=== PATIENT | female | born 2000 | race African-American/Black ===

== ENCOUNTER 2023-07-30 04:03 | Emergency (ER) | payer OTHER ==
--- NOTE | 2023-07-30 04:09 | ED Physician Documentation ---
PD HPI DYSPNEA - Stated complaint Stated Complaint: SOA/COVID+ - History obtained from History obtained from: Patient - Additional information Additional information: HPI from patient. Patient complains of generalized myalgias and malaise, bilateral ear pain, sore throat, sinus congestion, generalized headache, dyspnea, nausea and vomiting, chills and sweats. Has not taken temperature at home (does not have a thermometer). The symptoms began 2 days ago. Last night she took a COVID test at home, with COVID-positive result. She says she has taken DayQuil with inadequate relief of her symptoms; she says that the chief reason for luke's ED visit is to see if there are other medications that will better control her symptoms. PD PAST MEDICAL HISTORY - Past Medical History Past Medical History: No - Allergies Allergies/Adverse Reactions: Allergies Allergy/AdvReac Type Severity Reaction Status Date / Time No Known Drug Allergies Allergy Verified 07/30/23 04:10 PD ED PE NORMAL - Vitals Vital signs reviewed: Yes - General General: Alert and oriented X 3, No acute distress, Well developed/nourished - HEENT HEENT: Ears normal, Moist mucous membranes - Respiratory Respiratory: No respiratory distress, Clear bilaterally PD ED PE EXPANDED - HEENT HEENT: Pharyngeal erythema (mild erythema ) Results - Vitals Vitals: Vital Signs - 24 hr 07/30/23 07/30/23 04:07 04:56 Temperature 36.8 C 36 C L Heart Rate 94 74 Respiratory 18 16 Rate Blood Pressure 143/79 H 131/67 H O2 Saturation 98 98 Oxygen O2 Source Room air PD Medical Decision Making - ED course Complexity details: considered differential, d/w patient ED course: Afebrile and normal vital signs including room-air pulse ox (98%). She is in NAD. We discussed options for treatment of both her symptoms as well as COVID (anti-virals/Paxlovid). I explained the rationale for Paxlovid (reduced likelihood of worsening symptoms requiring hospitalization), and explained that her BMI would put her at greater risk for serious illness and thus I recommended Paxlovid. She declines this medication. We then focussed on medications for her symptoms. Given her report that she has been having nausea and vomiting for the past 2 days with increasing difficulty keeping most any p.o. intake down, I recommended that we start with TL Zofran. After much discussion, she decides she does not want this medication. I offered a take-home pack of the ondansetron as well as a prescription for ondansetron; she declines both of these. Regarding her myalgias, headache, sore throat, ear pain, I recommended she try an anti-inflammatory such as ibuprofen (DayQuil does not contain an anti- inflammatory). I considered giving first dose now, but would again want to start with the anali to prevent n/v. She says she will purchase ibuprofen later this morning when pharmacies are open and does not want a dose at this time. I recommended she also purchase a decongestant, either as a nasal spray or an oral form. I also offered to write a prescription for tramadol which she can use should she not have adequate relief of her painful symptoms with ibuprofen. She also declines this medication. Thus, after much discussion regarding several di fferent medication options for treatment of both the COVID specifically, and the symptoms in general, she declines all of the medications we discussed. Departure - Departure Disposition: 01 Home, Self Care Clinical Impression: COVID-19 Condition: Good Instructions: ED Viral Syndrome Comments: You will likely experience better symptom relief with ibuprofen (Motrin, Advil) compared to Tylenol (acetaminophen). You can try [id number]-[id number] decongestants to help with the sinus congestion (such as Sudafed or Afrin nasal spray). If you take a product with multiple medications and it (such as DayQuil or NyQuil), be sure to not take any of the same medications from another product (for example, don't take a decongestant such as Sudafed if you are taking another product with multiple medications in it that includes a decongestant). Follow the CDC guidelines regarding when it is safe to return to work. https://www.cdc.gov/respiratory-viruses/prevention/yzjiedukfzq-szsh-crsm.html The following is a cut/paste from the CDC website: You can go back to your normal activities when, for at least 24 hours, both are true: Your symptoms are getting better overall, and You have not had a fever (and are not using fever-reducing medication). When you go back to your normal activities, take added precaution over the next 5 days, such as taking additional steps for blind cleaner air, hygiene, masks, physical distancing, and/or testing when you will be around other people indoors. Keep in mind that you may still be able to spread the virus that made you sick, even if you are feeling better. You are likely to be less contagious at this time, depending on factors like how long you were sick or how sick you were. If you develop a fever or you start to feel worse after you have gone back to normal activities, stay home and away from others again until, for at least 24 hours, both are true: your symptoms are improving overall, and you have not had a fever (and are not using fever-reducing medication). Then take added precau tion for the next 5 days. Forms: Activity restrictions Discharge Date/Time: 07/30/23 04:57
[2023-07-30 04:18] VITALS: O2SAT 98
[2023-07-30 05:06] VITALS: BP 131/67
== END 2023-07-30 04:57 | disposition home or self-care (01) ==
LOC: ED 04:03
DX: U07.1 COVID-19 (principal)
CPT/HCPCS: 99281; 99283

== ENCOUNTER 2023-10-18 18:33 | Emergency (ER) | payer OTHER ==
--- NOTE | 2023-10-18 20:54 | ED Physician Documentation ---
History of Present Illness - Stated complaint Stated Complaint: INNER THIGH RASHES - Chief complaint Chief Complaint: Allergic Rx - Additonal information Additional information: Patient is a 22-year-old female presenting to the emergency department with rash to bilateral inner thighs. Patient notes symptoms started when she woke up this morning and started to shower. She described as an itching and burning sensation earlier but pain has resolved at this time. She notes she has tried to increase running this week as well as tried a new body wash and lotion. She notes no other rashes no other body rash no swelling no difficulty breathing patient denies any persistent pruritus or burning sensation at this time. No extension to vaginal region. Patient is not concerned for any STDs. No vaginal discharge or pelvic pain. PD PAST MEDICAL HISTORY - Past Medical History Past Medical History: No - Past Surgical History Past Surgical History: No - Present Medications Home Medications: Ambulatory Orders Medication Instructions Recorded Confirmed Hydrocortisone 1% Cream 1 applic TOP BID #28 gm 10/18/23 [Hydrocortisone] Triamcinolone 0.1% Cream [Kenalog 1 applic TOP BID #15 gm 10/18/23 0.1% Cream] - Allergies Allergies/Adverse Reactions: Allergies Allergy/AdvReac Type Severity Reaction Status Date / Time No Known Drug Allergies Allergy Verified 10/18/23 18:36 - Social History Does the pt smoke?: No Smoking Status: Never smoker Does the pt drink ETOH?: No Does the pt have substance abuse?: No - Immunizations Immunizations are current?: Yes - POLST Patient has POLST: No PD ED PE NORMAL - Vitals Vital signs reviewed: Yes - General General: Alert and oriented X 3 - HEENT HEENT: Atraumatic - Neck Neck: Supple, no meningeal sign - Cardiac Cardiac: RRR, No murmur, No gallop, No rub - Respiratory Respiratory: No respiratory distress, Clear bilaterally - Abdomen Abdomen: Normal bowel sounds, Soft, Non tender, Non distended - Derm Derm: Other (Mild erythema noted to left inner thigh no appreciable right inner thigh findings. No extension to the vaginal region or labial region. No vesicles papules or purpura. No inguinal lymphadenopathy. No appreciable streaking or swelling. No fluctuance or induration on exam.) - Neuro Neuro: Alert and oriented X 3 Eye Opening: Spontaneous Motor: Obeys Commands Verbal: Oriented GCS Score: 15 Results - Vitals Vitals: Vital Signs - 24 hr 09/07/24 18:36 Temperature 36.8 C Heart Rate 100 Respiratory 16 Rate Blood Pressure 136/80 H O2 Saturation 97 Oxygen O2 Source Room air PD Medical Decision Making - ED course Complexity details: re-evaluated patient ED course: Patient is a 22-year-old female presenting to the emergency department with bilateral inner thigh rash symptoms started this morning when she got up to shower. She notes burning sensation she did not put anything on it. She does note she has been running more this week and she also put lotion and new body wash all over her body she notes no other new rashes. She notes pain resolved while she was in the waiting room. She has not tried anything for symptoms. Vital stable on arrival patient is afebrile nontachycardic. Rash noted to left inner thigh no extension to labia no sustention to inguinal lymphadenopathy. No signs of vesicles petechiae or purpura on examination. No induration or fluctuance on examination or significant tenderness. Discussed with patient symptoms could be secondary to contact dermatitis versus possible irritation with running more causing abrasions to the skin however we will try topical steroids to see if this will help with patient's symptoms in the setting of contact dermatitis using a new body wash and lotion. Instructed patient to follow-up with PCP in outpatient setting. She was instructed to return with any worsening rash worsening pain vesicles fevers or any other new or worsening symptoms. Patient understands and is agreeable with this plan. Departure - Departure
[2023-10-18 21:34] VITALS: BP 128/80; O2SAT 98
== END 2023-10-18 21:25 | disposition home or self-care (01) ==
LOC: ED 18:33
DX: L25.9 Unspecified contact dermatitis, unspecified cause (principal)
CPT/HCPCS: 99282; 99283

== ENCOUNTER 2023-11-06 08:00 | Outpatient (CLI) | payer OTHER ==
[2023-11-07 00:46] LABS: BACTERIAL VAGINOSIS DNA NEGATIVE (NEGATIVE); CANDIDA GLABRATA DNA NEGATIVE (NEGATIVE); CANDIDA GROUP DNA POSITIVE (NEGATIVE); CANDIDA KRUSEI DNA NEGATIVE (NEGATIVE); TRICHOMONAS VAGINALIS DNA NEGATIVE (NEGATIVE)
== END 2023-11-06 23:59 | disposition home or self-care (01) ==
LOC: LAB.N 08:00
PROVIDERS: ATTEND Nurse Practitioner
DX: N89.8 Other specified noninflammatory disorders of vagina (principal)
CPT/HCPCS: 81514